=== PATIENT | male | born 1975 | race Caucasian/White ===

== ENCOUNTER 2018-07-14 09:44 | Emergency (ER) | payer OTHER ==
[2018-07-14 09:48] VITALS: BMI 23.3
[2018-07-14 09:49] VITALS: PULSE 78; RESP 17; TEMP 98.7; O2SAT 100
--- NOTE | 2018-07-14 10:36 | ED PDOC ---
HPI: Skin/Bite Injury Time Seen by Provider: 07/14/18 10:21 Chief Complaint (Nursing): Trauma Chief Complaint (Provider): Abnormal Skin Integrity History Per: Patient History/Exam Limitations: no limitations Onset/Duration Of Symptoms: Days (x1 month) Current Symptoms Are (Timing): Still Present Additional Complaint(s): 42 year old male presents to the ED for evaluation of abnormal skin integrity. Patient states that one month ago he fell and hit his left cheek, initially sustaining redness, swelling, and bruising to the area, all which resolved besides the swelling. Denies any pain to the area. PMD: none provided Past Medical History Reviewed: Historical Data, Nursing Documentation, Vital Signs Vital Signs: Last Vital Signs Temp 98.7 F 07/14/18 09:48 Pulse 78 07/14/18 09:48 Resp 17 07/14/18 09:48 BP 142/85 07/14/18 09:48 Pulse Ox 100 07/14/18 09:48 - Medical History PMH: No Chronic Diseases - Surgical History Surgical History: No Surg Hx - Family History Family History: States: Unknown Family Hx - Social History Current smoker - smoking cessation education provided: Yes Alcohol: Social Drugs: Denies - Allergies Allergies/Adverse Reactions: Allergies Allergy/AdvReac Type Severity Reaction Status Date / Time No Known Allergies Allergy Verified 07/14/18 10:34 Review of Systems ROS Statement: Except As Marked, All Systems Reviewed And Found Negative Constitutional: Negative for: Fever ENT: Positive for: Other (left cheek swelling, but no pain or redness) Physical Exam - Reviewed Nursing Documentation Reviewed: Yes Vital Signs Reviewed: Yes - Physical Exam Appears: Positive for: No Acute Distress Head Exam: Positive for: ATRAUMATIC, NORMOCEPHALIC Skin: Positive for: Normal Color, Warm Eye Exam: Positive for: Normal appearance, EOMI, PERRL ENT: Positive for: Normal ENT Inspection, Other (left cheek: round elevation that is firm but not hard, with no fluctuance or tenderness, but positive mild irritation of skin on surface, not hot to touch; dentition intact and unremarkable) Neck: Positive for: Normal, Painless ROM, Supple Cardiovascular/Chest: Positive for: Regular Rate, Rhythm Respiratory: Positive for: Normal Breath Sounds. Negative for: Respiratory Distress Neurologic/Psych: Positive for: Alert, Oriented (x3) - ECG O2 Sat by Pulse Oximetry: 100 (RA) Pulse Ox Interpretation: Normal - Radiology X-Ray: Viewed By Me X-Ray Interpretation: No Acute Disease Medical Decision Making Medical Decision Making: Time: 1034 Initial Impression: post traumatic swelling Initial Plan: --XR facial bones --Patient advised to further follow up in the clinic Scribe Attestation: Documented by Yasmine Bejarano, acting as a scribe for Domi Hernandez MD. Provider Scribe Attestation: All medical record entries made by the Scribe were at my direction and personally dictated by me. I have reviewed the chart and agree that the record accurately reflects my personal performance of the history, physical exam, medical decision making, and the department course for this patient. I have also personally directed, reviewed, and agree with the discharge instructions and disposition. Disposition - Clinical Impression Clinical Impression: Hematoma and contusion - Patient ED Disposition Is Patient to be Admitted: No Doctor Will See Patient In The: Office Counseled Patient/Family Regarding: Diagnosis, Need For Followup - Disposition Referrals: [facility] [Outside] [facility] [Outside] Disposition: Routine/Home Disposition Time: 11:40 Condition: STABLE Instructions: Contusion (DC) Forms: [employer] (Latvian) Print Language: SURINAMESE - POA Present On Arrival: Falls Or Trauma
[2018-07-14 12:33] VITALS: BP 134/72
--- NOTE | 2018-07-14 14:52 | RAD ---
Date of service: 07/14/2018 PROCEDURE: Facial bones HISTORY: left cheek injury 1 month ago COMPARISON: None TECHNIQUE: Standard protocol for this study/examination. FINDINGS: No visible facial fractures identified. No evidence of acute or chronic sinus disease. No nasal bone fractures. IMPRESSION: No acute findings related to/ accounting for the clinical presentation.
== END 2018-07-14 12:01 | disposition home or self-care (01) ==
LOC: H.ER 09:44
DX: S00.83XA Contusion of other part of head, initial encounter (principal); W19.XXXA Unspecified fall, initial encounter; F17.200 Nicotine dependence, unspecified, uncomplicated